=== PATIENT | male | born 1960 | race Caucasian/White ===

== ENCOUNTER 2018-10-18 11:12 | Emergency (ER) | payer OTHER ==
[~2018-10-18] VITALS: Ht 185.4 cm; Wt 122.5 kg
--- OUTSIDE RECORDS SUMMARY | 2018-10-18 11:17 | XMS REPORT | Continuity of Care Document ---
Author Author [facility] Organization [facility] Address Unknown Phone Unavailable Allergies Active Description Code Type Severity Reaction Onset Reported/Identified Relationship to Patient Clinical Status Yes No Known Drug Allergies [id number] Drug Allergy Unknown N/A 08/23/2008 Medications There is no data. Problems There is no data. Procedures There is no data. Results There is no data. Encounters ACCT No. Visit Date/Time Discharge Status Pt. Type Provider Facility Loc./Unit Complaint [id number] 07/31/2015 05:25:00 07/31/2015 23:59:59 CLS Outpatient DARRIUS MARSH DO [facility] PREOP
[2018-10-18] MEDS ORDERED: LIDOCAINE 2% VISCOUS 15 ML UDC ONE (11:28)
[2018-10-18] MEDS ORDERED: ANTACID SUSP 30 ML UDC (MYLANTA) ONE (11:28)
[2018-10-18] MEDS ORDERED: LIDOCAINE 2% VISCOUS 15 ML UDC PO ONE (11:30)
[2018-10-18] MEDS ORDERED: ANTACID SUSP 30 ML UDC (MYLANTA) PO ONE (11:30)
[2018-10-18 11:38] LABS: BASOPHILS # (AUTO) 0.1 10^3/uL (0.0-0.1); BASOPHILS % (AUTO) 1 % (0-10); EOSINOPHILS # (AUTO) 0.3 10^3/uL (0.0-0.3); EOSINOPHILS % (AUTO) 4 % (0-10); HEMATOCRIT 46 % (40-54); HEMOGLOBIN 15.8 G/DL (13.3-17.7); LYMPHOCYTES # (AUTO) 2.5 X 10^3 (1.0-4.0); LYMPHOCYTES % (AUTO) 26 % (12-44); MEAN CORPUSCULAR HEMOGLOBIN 30 PG (25-34); MEAN CORPUSCULAR HGB CONC 35 G/DL (32-36); MEAN CORPUSCULAR VOLUME 86 FL (80-99); MEAN PLATELET VOLUME 9.6 FL (7.4-10.4); MONOCYTES % (AUTO) 10 % (0-12); NEUTROPHILS # (AUTO) 5.7 X 10^3 (1.8-7.8); NEUTROPHILS % (AUTO) 60 % (42-75); PLATELET COUNT 233 10^3/uL (130-400); RED CELL DISTRIBUTION WIDTH 13.7 % (10.0-14.5); WHITE BLOOD COUNT 9.5 10^3/uL (4.3-11.0)
[2018-10-18] MEDS ORDERED: fentaNYL INJECTION 100 MCG/2 ML AMP IVP ONE ×2 (11:45→12:30)
[2018-10-18 11:50] LABS: INR 1.1 (0.8-1.4); PROTHROMBIN TIME PATIENT 14.1 SEC (12.2-14.7)
--- NOTE | 2018-10-18 11:50 | ED Abdominal Pain ---
General Chief Complaint: Abdominal/GI Problems Stated Complaint: SOB;ESOPHAGUS PAIN Nursing Triage Note: PT CO OF ESOPHAGAS, ABD PAIN SINCE 0400 THIS AM AFTER EATING RATES 05/12 Sepsis Screen: No Definite Risk Source of Information: Patient Exam Limitations: No Limitations History of Present Illness Date Seen by Provider: Oct 18, 2018 Time Seen by Provider: 11:25 Initial Comments 58-year-old male who presents to the emergency room with complaints of esophagus pain that radiates to his epigastric area and into his right chest. He reports the pain started around 0 400 this morning after eating steak for lunch. He works shift boss job. He reports this happened before after eating and when he went to [place] emergency room they scanned his abdomen and it did not show anything in the pain subsided after IV medication. He reports that this happens from time to time but it does not stay this long. He reports that on both occasions this was after he had fasted for at least 48 hours. Timing/Duration: 4-6 Hours Severity/Quality: Sharp, Throbbing Location: Epigastric Radiation: Chest, Epigastric Associated Symptoms: Shortness of Air Allergies and Home Medications Allergies Coded Allergies: No Known Drug Allergies (Verified Allergy, Unknown, 08/23/08) Home Medications Hydrocodone Bit/Acetaminophen 1 Tab Tab, 1-2 EACH PO Q6H PRN for PAIN-MODERATE Prescribed by: MIRANDA GIL on 10/18/18 145 Pantoprazole Sodium 20 Mg Tablet.dr, 20 MG PO DAILY Prescribed by: MIRANDA GIL on 10/18/181455 Sucralfate 1 Gm Tablet, 1 GM PO QID 1 hour before meals and at bedtime. Prescribed by: MIRANDA GIL on 10/18/18 145 Patient Home Medication List Home Medication List Reviewed: Yes Review of Systems Review of Systems Constitutional: see HPI; No chills, No fever Respiratory: See HPI, Shortness of Air Cardiovascular: See HPI, Chest Pain (Right-sided chest pain) Gastrointestinal: See HPI, Abdominal Pain All Other Systems Reviewed Negative Unless Noted: Yes Past Imrzucl-Suagin-Ctmphi Hx Past Med/Social Hx: Reviewed Nursing Past Med/Soc Hx Patient Social History Alcohol Use: Occasionally Uses Recreational Drug Use: No Smoking Status: Never a Smoker Recent Foreign Travel: No Contact w/Someone Who Travel: No Recent Infectious Disease Expo: No Recent Hopitalizations: No Past Medical History Surgeries: No Respiratory: No Cardiac: No Neurological: No Reproductive Disorders: No Sexually Transmitted Disease: No Genitourinary: No Gastrointestinal: No Musculoskeletal: Yes (BROKEN LEFT ARM) Endocrine: No HEENT: No Cancer: No Psychosocial: No Integumentary: No Blood Disorders: No Family Medical History Reviewed Nursing Family Hx Physical Exam Vital Signs Vital Signs - First Documented 10/18/18 11:20 Temp 96.7 Pulse 72 Resp 18 B/P (MAP) 167/97 (120) Pulse Ox 99 Capillary Refill : Less Than 3 Seconds Height/Weight/BMI Height: 6'1.00" Weight: 270lbs. oz. 122.782582zb; BMI Method:Stated General Appearance: WD/WN, no apparent distress Respiratory: chest non-tender, lungs clear, normal breath sounds, no respiratory distress, no accessory muscle use Cardiovascular: normal peripheral pulses, regular rate, rhythm, no edema, no gallop, no JVD, no murmur Gastrointestinal: normal bowel sounds, soft, no organomegaly, no pulsatile mass , tenderness (Epigastric and right upper quadrant tenderness.) Extremities: normal capillary refill Neurologic/Psychiatric: alert, normal mood/affect, oriented x 3 Skin: normal color, warm/dry Progress/Results/Core Measures Results/Orders Lab Results Laboratory Tests Test 10/18/18 11:30 Range/Units White Blood Count 9.5 4.3-11.0 10^3/uL Red Blood Count 5.31 4.35-5.85 10^6/uL Hemoglobin 15.8 13.3-17.7 G/DL Hematocrit 46 40-54 % Mean Corpuscular Volume 86 80-99 FL Mean Corpuscular Hemoglobin 30 25-34 PG Mean Corpuscular Hemoglobin Concent 35 32-36 G/DL Red Cell Distribution Width 13.7 10.0-14.5 % Platelet Count 233 130-400 10^3/uL Mean Platelet Volume 9.6 7.4-10.4 FL Neutrophils (%) (Auto) 60 42-75 % Lymphocytes (%) (Auto) 26 12-44 % Monocytes (%) (Auto) 10 0-12 % Eosinophils (%) (Auto) 4 0-10 % Basophils (%) (Auto) 1 0-10 % Neutrophils # (Auto) 5.7 1.8-7.8 X 10^3 Lymphocytes # (Auto) 2.5 1.0-4.0 X 10^3 Monocytes # (Auto) 1.0 0.0-1.0 X 10^3 Eosinophils # (Auto) 0.3 0.0-0.3 10^3/uL Basophils # (Auto) 0.1 0.0-0.1 10^3/uL Prothrombin Time 14.1 12.2-14.7 SEC INR Comment 1.1 0.8-1.4 Activated Partial Thromboplast Time 30 24-35 SEC Sodium Level 140 135-145 MMOL/L Potassium Level 3.6 3.6-5.0 MMOL/L Chloride Level 104 98-107 MMOL/L Carbon Dioxide Level 26 21-32 MMOL/L Anion Gap 10 5-14 MMOL/L Blood Urea Nitrogen 20 H 7-18 MG/DL Creatinine 1.25 0.60-1.30 MG/DL Estimat Glomerular Filtration Rate 60 BUN/Creatinine Ratio 16 Glucose Level 104 70-105 MG/DL Calcium Level 9.5 8.5-10.1 MG/DL Corrected Calcium 9.1 8.5-10.1 MG/DL Magnesium Level 2.8 H 1.8-2.4 MG/DL Total Bilirubin 0.3 0.1-1.0 MG/DL Aspartate Amino Transf (AST/SGOT) 29 5-34 U/L Alanine Aminotransferase (ALT/SGPT) 41 0-55 U/L Alkaline Phosphatase 70 40-136 U/L Myoglobin 76.2 10.0-92.0 NG/ML Troponin I < 0.028 <0.028 NG/ML Total Protein 7.2 6.4-8.2 GM/DL Albumin 4.5 3.2-4.5 GM/DL My Orders Orders - BERNOT,MIRANDA Cbc With Automated Diff (10/18/18 11:22) Magnesium (10/18/18 11:22) Chest 1 View, Ap/Pa Only (10/18/18 11:22) Ekg Tracing (10/18/18:) Cardiac Profile 1 (10/18/18 11:) Comprehensive Metabolic Panel (10/18/18 11:22) Myoglobin Serum (10/18/18 11:22) Protime With Inr (10/18/18 11:22) Partial Thromboplastin Time (10/18/18 11:22) O2 (10/18/18 11:22) Monitor-Rhythm Ecg Trace Only (10/18/18 11:22) Saline Lock/Iv-Start (10/18/18 11:22) Lidocaine 2% Viscous 15 Ml (Xylocaine Vi (10/18/18 11:30) Antacid Suspension (Mylanta Suspension (10/18/18 11:30) Antacid Suspension (Mylanta Suspension (10/18/18 11:28) Lidocaine 2% Viscous 15 Ml (Xylocaine Vi (10/18/18 11:28) Fentanyl Injection (Sublimaze Injection (10/18/18 11:45) Fentanyl Injection (Sublimaze Injection (10/18/18 12:30) Ct Chest/Abdomen W (10/18/18 12:39) Morphine Injection (Morphine Injection (10/18/18 12:45) Iohexol Injection (Omnipaque 350 Mg/Ml 1 (10/18/18 13:15) Received Contrast (Hold Metformin- Contr (10/18/18 13:15) Hyoscyamine Sl Tablet (Levsin Sl Tablet) (10/18/18 14:45) Hydrocodone/Apap 7.5/325 Tab (Lortab 7. (10/18/18 14:45) Medications Given in ED Vital Signs/I&O 10/18/18 10/18/18 11:20 15:19 Temp 96.7 96.7 Pulse 72 72 Resp 18 18 B/P (MAP) 167/97 (120) 154/84 (107) Pulse Ox 99 99 Blood Pressure Mean: 120 Progress Progress Note : Time: 12:30 Progress Note I have discussed the case with Dr. Hardy and he recommends a CT chest and abdomen with oral contrast to evaluate for an esophageal tear. The patient's pain improved with pain medication. I will discuss the findings with Dr. Hardy when the results are back. 1430: I have discussed the findings with Dr. Hardy. The patient's pain has completely resolved at this time. Dr. Hardy recommends having the patient follow-up in his office for cholecystectomy and EGD scheduling and treating the reflux with Carafate and Protonix.. The patient agrees with plan of care, plans for discharge, return precautions were given. Initial ECG Impression Date: Oct 18, 2018 Initial ECG Impression Time: 11:22 Initial ECG Rate: 69 Initial ECG Rhythm: Normal Sinus Initial ECG Intervals: Normal Initial ECG Impression: Normal Initial ECG Comparisson: No Previous ECG Available Diagnostic Imaging Diagonstic Imaging: Xray, CT Plain Films/CT/US/NM/MRI: chest, abdomen Comments NAME: CORINNE MARR [facility] REC#: [id number] PT STATUS: DEP ER : 1960 PHYSICIAN: MIRANDA GIL ADMIT DATE: 10/18/18/ER Signed Date of Exam: 10/18/18 CHEST 1 VIEW, AP/PA ONLY INDICATION: Shortness of air. COMPARISON: None FINDINGS: Single frontal view of the chest demonstrates normal heart size and pulmonary vascularity. The lungs are well aerated and clear. No large pleural effusion or pneumothorax is seen. The visualized osseous structures show no acute abnormalities. IMPRESSION: 1. No acute cardiopulmonary process. Dictated by: Dictated on workstation # [id number] Dict: 10/18/18 1149 Trans: 10/19/18918 Interpreted by: MAYE RUCKER MD Electronically signed by: MAYE RUCKER MD 10/19/18918 Departure Impression Primary Impression: Cholelithiasis Additional Impression: GERD (gastroesophageal reflux disease) Disposition: 01 HOME, SELF-CARE Condition: Stable/Unchanged Departure-Patient Inst. Decision time for Depature: 14:49 Referrals: TRISTON HARDY MD Patient Instructions: Acid Reflux (Gastroesophageal Reflux Disease) in Adults, Gallstones (DC) Add. Discharge Instructions: Call Dr. Hardy office today to schedule an appointment for your EGD and further evaluation of her gallstones. Take the medications as directed. Return back to the emergency room for worsening symptoms or concerns as needed. All discharge instructions reviewed with patient and/or family. Voiced understanding. Scripts Pantoprazole Sodium (Protonix) 20 Mg Tablet. 20 MG PO DAILY, #20 TAB Prov: MIRANDA GIL 10/18/18 Sucralfate (Carafate) 1 Gm Tablet 1 GM PO QID, #30 TAB 1 hour before meals and at bedtime. Prov: MIRANDA GIL 10/18/18 Hydrocodone Bit/Acetaminophen (Hydrocodone/Acetaminophen 5/325mg Tablet) 1 Tab Tab 1-2 EACH PO Q6H PRN for PAIN-MODERATE MDD 10, #20 TAB Prov: MIRANDA GIL 10/18/18 MIRANDA GIL Oct 18, 2018 11:50
[2018-10-18 12:01] LABS: ALANINE AMINOTRANSFERASE 41 U/L (0-55); ALBUMIN 4.5 GM/DL (3.2-4.5); ALKALINE PHOSPHATASE 70 U/L (40-136); BILIRUBIN,TOTAL 0.3 MG/DL (0.1-1.0); BUN/CREATININE RATIO 16; CALCIUM 9.5 MG/DL (8.5-10.1); CARBON DIOXIDE 26 MMOL/L (21-32); CHLORIDE 104 MMOL/L (98-107); CREATININE SERUM 1.25 MG/DL (0.60-1.30); GFR ESTIMATED 60; GLUCOSE 104 MG/DL (70-105); MAGNESIUM 2.8 MG/DL (1.8-2.4); POTASSIUM 3.6 MMOL/L (3.6-5.0); SODIUM 140 MMOL/L (135-145); TOTAL PROTEIN 7.2 GM/DL (6.4-8.2)
[2018-10-18 12:13] LABS: MYOGLOBIN SERUM 76.2 NG/ML (10.0-92.0)
[2018-10-18] MEDS ORDERED: morphine INJ 10 MG/ML 1ML (SYR OR VIAL) IVP ONE (12:45)
--- NOTE | 2018-10-18 12:59 | NUR ---
WILL HOLD MORPHINE AT THIS X. D/T DROWSINESS
[2018-10-18] MEDS ORDERED: IOHEXOL 350 MG/ML 100 ML (OMNIPAQUE 350) VIAL IV ONE (13:15)
[2018-10-18] MEDS ORDERED: HOLD METFORMIN - RECEIVED CONTRAST 20 ML VIAL IV SCH (13:15)
--- NOTE | 2018-10-18 14:13 | Diagnostic Imaging Report ---
PROCEDURE: CT chest and abdomen with contrast. TECHNIQUE: Multiple contiguous axial images were obtained through the chest and abdomen after the administration of intravenous contrast. INDICATION: Shortness of breath, esophageal and abdominal pain after eating this morning. COMPARISON: CT from 07/14/2011 FINDINGS: CT CHEST: The heart is normal in size. There is no pericardial effusion. No mediastinal adenopathy is seen. The contrast is seen within the esophagus without extravasation seen. There is dependent atelectasis in the lungs bilaterally. No pneumothorax is seen. No focal consolidation is seen. No acute osseous abnormality is seen. CT ABDOMEN: No focal liver lesions are seen. The spleen appears normal. There are small 6 mm densities in the dependent gallbladder, may represent small stones. The pancreas appears normal. The adrenal glands are normal. There is a 2.3 cm simple appearing cysts in the right kidney, otherwise the kidneys appear normal with no hydronephrosis. The bowel loops are nondistended. There is diverticulosis of the descending colon without diverticulitis seen. The appendix is normal. No acute osseous abnormality is seen. No free fluid or free air is seen in the abdomen. IMPRESSION: 1. No esophageal perforation is seen. Contrast is present within the esophagus which may be residual versus reflux. 2. Cholelithiasis. 3. Colonic diverticulosis without diverticulitis. Dictated by: Dictated on workstation # [id number]
[2018-10-18] MEDS ORDERED: HYDROcodone/APAP 7.5 MG/325 MG (LORTAB, LORCET PLUS) TABLET PO ONE (14:45)
[2018-10-18] MEDS ORDERED: HYOSCYAMINE 0.125 MG (LEVSIN) TAB PO ONE (14:45)
[2018-10-18] MEDS ORDERED: SUCR1TAB36 PO (14:56)
[2018-10-18] MEDS ORDERED: ACHD5005 PO (14:56)
[2018-10-18] MEDS ORDERED: PANT20TA2 PO (14:56)
[2018-10-18 15:19] VITALS: BP 154/84
[2018-10-21] MEDS ORDERED: HYDR-34 PO (11:44)
[2018-10-21] MEDS ORDERED: TADA5TAB13 PO (15:02)
== END 2018-10-18 15:18 | disposition home or self-care (01) ==
LOC: EDUNIT# 11:12 → ER 11:13
DX: K80.20 Calculus of gallbladder without cholecystitis without obstruction (principal); K21.9 Gastro-esophageal reflux disease without esophagitis
CPT/HCPCS: 36415; 71045; 71260; 74160; 80053; 83735; 83874; 84484; 85025; 85610; 85730; 93005; 93041

== ENCOUNTER 2018-10-21 05:52 | Inpatient (IN) | payer OTHER | END 2018-10-23 11:00 | disposition home or self-care (01) | LOC: SDC 10-22 09:00 → 4TH 10-22 09:00 → ER 05:52 → SDC 07:40 → 4TH 07:40 ==